=== PATIENT | male | born 1975 | race Caucasian/White ===

== ENCOUNTER 2019-06-26 15:15 | Outpatient (RCR) | payer OTHER, SELFPAY ==
[2019-06-12 14:25] VITALS: BP 159/92; PULSE 64; RESP 16; TEMP 36.9; BMI 52.2
[2019-06-16 15:05] VITALS: BP 136/78; PULSE 59; RESP 18; TEMP 36.4; BMI 52.2
--- NOTE | 2019-06-17 10:25 | PCM.WC.HP ---
(1) Venous stasis ulcer of left lower leg with edema of left lower leg Status: Acute Current Visit: Yes Code(s): I83.029 - Varicose veins of left lower extremity with ulcer of unspecified site; I83.892 - Varicose veins of left lower extremity with other complications; L97.929 - Non-pressure chronic ulcer of unspecified part of left lower leg with unspecified severity; R60.9 - Edema, unspecified (2) PVD (peripheral vascular disease) Status: Acute Current Visit: Yes Code(s): I73.9 - Peripheral vascular disease, unspecified (3) Morbid obesity Status: Acute Current Visit: Yes Code(s): E66.01 - Morbid (severe) obesity due to excess calories (4) Tobacco abuse Status: Acute Current Visit: Yes Code(s): Z72.0 - Tobacco use (5) Hypertension Status: Chronic Current Visit: Yes Code(s): I10 - Essential (primary) hypertension (6) Hyperlipidemia Status: Acute Current Visit: Yes Code(s): E78.5 - Hyperlipidemia, unspecified History of Present Illness Date of Service: 06/12/19 Chief Complaint: Nonhealing ulcer left lower extremity History of Wound: This is a 44-year-old white male who presents to the wound healing center today with complaint of a nonhealing ulcer to the left lower extremity x2 months. He has a past medical history as listed above significant for PVD. He does state that he has been seen in the past at the wound healing center for wounds and that he has been told that he has had venous insufficiency. He does note that he has a 1 pack/day smoker and has a history of hypertension hyperlipidemia. He states that the site initially started as a blister that opened up and that he has been covering the site with Telfa and Jimbo wraps and gauze. He notes a large amount of serosanguineous drainage. He states that he thinks the size is gradually improving. Denies any systemic or localized signs of infection at this time. All other systems reviewed and negative with exception of those listed above. Past Medical History Past Medical History: Chronic Problems Hypertension (Chronic) Surgical History: no surgical history Allergies/Adverse Reactions: Allergies meperidine [From Demerol] Allergy (Verified 06/12/19 14:44) Unknown Home Medications: Ambulatory Orders Medication Instructions Recorded Atorvastatin Calcium 20 mg PO DAILY 06/12/19 Metoprolol Tartrate 50 mg PO DAILY 06/12/19 Nabumetone 750 mg PO DAILY 06/12/19 Spironolactone 25 mg PO DAILY 06/12/19 Review of Systems Constitutional: Denies: Chills, Fever, Weight Change Eyes: Denies: Pain, Vision Change HEENT: Denies: Difficulty Hearing, Difficulty Swallowing, Sinus Congestion Cardiovascular: Reports: Edema. Denies: Chest Pain, Palpitations Respiratory: Denies: Cough, Shortness of Breath Gastrointestinal: Denies: Diarrhea, Nausea, Vomiting Genitourinary: Denies: Dysuria, Hematuria Skin: Reports: Wounds - See HPI Endocrine: Denies: Heat/ Cold Intolerance, Polydipsia, Polyuria Hematologic/ Lymphatic: Denies: Easy Bruising, Easy Bleeding - Physical Exam Vital Signs Temp Pulse Resp BP 97.5 F L 59 L 18 136/78 H 06/16/19 15:05 06/16/19 15:05 06/16/19 15:05 06/16/19 15:05 General: Alert, Oriented x3, Cooperative, No apparent distress HEENT: Atraumatic, PERRLA Oral: Moist Mucosa Neck: Supple Lungs: Clear to auscultation, Normal air movement, No rhonchi, No wheeze, No rales Cardiovascular: Regular rate, Regular Rhythm Abdomen: Soft, Non Tender, Obese Extremities: No clubbing, No cyanosis, Edema - +1 pitting bilateral lower extremity edema, Peripheral Pulses Normal Skin: Ulcer/ Wound - Circumferential ulceration to left lower extremity with large amount of adherent slough and devitalized tissue, no warmth, erythema, or streaking noted at this time Wound Measurements and Assessment WC - Nurse 1 - General Ulcer Measurement Start: 06/12/19 14:05 Freq: Status: Active Protocol: Activity Type Activity Date Activity User E-Sign Co-Sign Detail Recorded Client Recorded Date Recorded By Document 06/16/19 15:05 [id number] 06/16/19 15:21 DL 06/16/19 15:05 Wound Center Nurse 1 [Ulcer Assessment] #1- LLE CIRCUMFERENTIAL -Texture (Leena-wound Skin Appearance) No Abnormality -Moisture (Leena-wound Skin Appearance No Abnormality ) -Color (Leena-wound Skin Appearance) No Abnormality -Temperature (Leena-wound Skin No Abnormality Appearance) (Pt Warm) -Tenderness on Palpation (Leena-wound No Skin Appearance) -Ulcer Cleansing Wound Cleanser -Foul Odor after Cleansing No Neurological: Neuro grossly intact Psych/Mental Status: Normal Affect, Appropriate, Alert and oriented to time, place, person, mood and affect Debridement Note Post-Debridement Measurements/Treatment WC - Nurse 2 - General Ulcer CM Notes Start: 06/12/19 14:05 Freq: Status: Active Protocol: Activity Type Activity Date Activity User E-Sign Co-Sign Detail Recorded Client Recorded Date Recorded By Document 06/12/19 15:07 MW [id number] 06/12/19 15:16 MW 06/12/19 15:07 Wound Center Nurse 2 #1- LLE CIRCUMFERENTIAL -Time 15:09 -Correct Patient Yes -Correct Side, Site, Position Yes -Correct Procedure Yes -Procedure Performed Yes -Type of Procedure Debridement -Clinical Debridement Subcutaneous -Post Debridement Size (cm) - Length 16.4 -Post Debridement Size (cm) - Width 35.9 -Post Debridement Size (cm) - Depth 0.1 -Total Square Cm 588.76 -Wound/Ulcer Outcome Not Healed -Ulcer Cleansing Rinsed/ Irrigated with Saline -Foul Odor after Cleansing No -Bioengineered Tissue No -Bleeding Controlled with Pressure -Offloading No -Treatment Response Procedure Tolerated Well Pain Scale: 0-10 Numeric Is Patient Pain Free? Yes Wound debrided: Circumferential left venous leg ulcer Laterality: Left Type of Debridement: Excisional debridement Anesthesia Used: 4% Lidocaine Solution, 5% Lidocaine Gel Depth: in the subcutaneous layer Percentage of wound debrided: 100 Instrument Used: 7mm curette Tissue Removed: Slough and devitalized tissue Severity: Fat Layer Exposed Amount of bleeding with debridement: Mild Bleeding Controlled with: Pressure Patient tolerated procedure well Assessment/Plan Active Problems Venous stasis ulcer of left lower leg with edema of left lower leg (Acute) PVD (peripheral vascular disease) (Acute) Morbid obesity (Acute) Tobacco abuse (Acute) Hypertension (Chronic) Hyperlipidemia (Acute) Assessment: See above diagnoses Plan: The patient was seen and examined at the wound center today and was updated on the plan of care. A subcutaneous debridement was performed today. The patient tolerated the procedure well. The patients wound care will consist of:Application of Aquacel silver over ulcerations and Unna boot, change in 4 days. Wound cultures And blood work out at this time as site appears granular without any obvious signs of infection at this time. Will request recent primary care blood work.. Vascular studies ordered. Patient educated on the importance of diet on wound healing and instructed to increase protein and vitamin C intake. Patient verbalized understanding. Given the delayed wound healing In fact that it is failed standard wound care over the past 2 months, will apply for the use of a skin substitute. Patient will follow up at wound healing center in one week or sooner if needed. This note was generated with [employer] dictation software. It may contain incorrect words, spelling, and punctuation that were not noted in checking the note before signing. Code Visit Office Visits / Consults: [id number] OV L4 New [id number]: [id number] Sabine subq tissue 20 sq cm/< Add On Codes: 14224 Sabine subq tissue add-on
[2019-06-19 14:59] VITALS: BP 143/79; PULSE 64; RESP 18; TEMP 36.7; BMI 52.2
--- NOTE | 2019-06-19 21:19 | PCM.WC.PN ---
(1) Venous stasis ulcer of left lower leg with edema of left lower leg Status: Acute Code(s): I83.029 - Varicose veins of left lower extremity with ulcer of unspecified site; I83.892 - Varicose veins of left lower extremity with other complications; L97.929 - Non-pressure chronic ulcer of unspecified part of left lower leg with unspecified severity; R60.9 - Edema, unspecified (2) PVD (peripheral vascular disease) Status: Acute Code(s): I73.9 - Peripheral vascular disease, unspecified (3) Morbid obesity Status: Acute Code(s): E66.01 - Morbid (severe) obesity due to excess calories (4) Tobacco abuse Status: Acute Code(s): Z72.0 - Tobacco use (5) Hypertension Status: Chronic Code(s): I10 - Essential (primary) hypertension (6) Hyperlipidemia Status: Acute Code(s): E78.5 - Hyperlipidemia, unspecified Type of Wound Date of Service: 06/19/19 Chief Complaint: Nonhealing ulcer left lower extremity History of Wound: This is a 44-year-old white male who presents to the wound healing center today with complaint of a nonhealing ulcer to the left lower extremity x2 months. He has a past medical history as listed above significant for PVD. He does state that he has been seen in the past at the wound healing center for wounds and that he has been told that he has had venous insufficiency. He does note that he has a 1 pack/day smoker and has a history of hypertension hyperlipidemia. He states that the site initially started as a blister that opened up and that he has been covering the site with Telfa and Jimbo wraps and gauze. He notes a large amount of serosanguineous drainage. He states that he thinks the size is gradually improving. Denies any systemic or localized signs of infection at this time. All other systems reviewed and negative with exception of those listed above. Progress of Wound: Ulcerations to left lower extremity has improved significantly, no signs of infection at this time. No new concerns. - Physical Exam Vital Signs Temp Pulse Resp BP 98.0 F 64 18 143/79 H 06/19/19 14:59 06/19/19 14:59 06/19/19 14:59 06/19/19 14:59 General: Alert, Oriented x3, Cooperative, No apparent distress HEENT: Atraumatic, PERRLA Oral: Moist Mucosa Lungs: Clear to auscultation, Normal air movement Cardiovascular: Regular rate Abdomen: Soft, Non Tender, Obese Extremities: No clubbing, No cyanosis, Edema - Generalized bilateral lower extremity edema, Peripheral Pulses Normal Skin: Ulcer/ Wound - Ulceration to left lower extremity with adherent slough, no signs of infection at this time Neurological: Neuro grossly intact Psych/Mental Status: Normal Affect, Appropriate, Alert and oriented to time, place, person, mood and affect Debridement Note Post-Debridement Measurements/Treatment WC - Nurse 2 - General Ulcer CM Notes Start: 06/12/19 14:05 Freq: Status: Active Protocol: Activity Type Activity Date Activity User E-Sign Co-Sign Detail Recorded Client Recorded Date Recorded By Document 06/12/19 15:07 MW [id number] 06/12/19 15:16 MW Document 06/19/19 15:29 MW [id number] 06/19/19 15:31 MW 06/12/19 06/19/19 15:07 15:29 Wound Center Nurse 2 #1- LLE CIRCUMFERENTIAL -Time 15:09 15:30 -Correct Patient Yes Yes -Correct Side, Site, Position Yes Yes -Correct Procedure Yes Yes -Procedure Performed Yes Yes -Type of Procedure Debridement Debridement -Clinical Debridement Subcutaneous Subcutaneous -Post Debridement Size (cm) - Length 16.4 1.0 -Post Debridement Size (cm) - Width 35.9 1.0 -Post Debridement Size (cm) - Depth 0.1 0.1 -Total Square Cm 588.76 1.00 -Wound/Ulcer Outcome Not Healed Not Healed -Ulcer Cleansing Rinsed/ Rinsed/ Irrigated with Irrigated with Saline Saline -Foul Odor after Cleansing No No -Bioengineered Tissue No No -Bleeding Controlled with Pressure Pressure -Offloading No No -Treatment Response Procedure Procedure Tolerated Well Tolerated Well Pain Scale: 0-10 Numeric Is Patient Pain Free? Yes Yes Wound debrided: Left lower extremity ulceration Laterality: Left Type of Debridement: Excisional debridement Anesthesia Used: 5% Lidocaine Gel Depth: in the subcutaneous layer Percentage of wound debrided: 100 Instrument Used: 7mm curette Tissue Removed: Slough and devitalized tissue Severity: Fat Layer Exposed Amount of bleeding with debridement: Mild Bleeding Controlled with: Pressure Patient tolerated procedure well Assessment/Plan Assessment: See above diagnoses Plan: The patient was seen and examined at the wound center today and was updated on the plan of care. A subcutaneous debridement was performed today. The patient tolerated the procedure well. The patients wound care will consist of:Application of Aquacel silver over ulcerations and Unna boot, change in 1 week. Wound cultures And blood work held at this time as site appears granular without any obvious signs of infection at this time. Will request recent primary care blood work.. Vascular studies Pending. Given the patient's history of PVD will order [place] wraps for compression.. Patient educated on the importance of diet on wound healing and instructed to increase protein and vitamin C intake. Patient verbalized understanding. Given the delayed wound healing In fact that it is failed standard wound care over the past 2 months, will apply for the use of a skin substitute. Patient will follow up at wound healing center in one week or sooner if needed. This note was generated with [employer] dictation software. It may contain incorrect words, spelling, and punctuation that were not noted in checking the note before signing.
== END 2019-07-08 23:59 ==
LOC: WC 15:15
PROVIDERS: Visit Provider Nurse Practitioner Family
DX: I83.028 Varicose veins of left lower extremity with ulcer other part of lower leg (principal); L97.822 Non-pressure chronic ulcer of other part of left lower leg with fat layer exposed; E66.01 Morbid (severe) obesity due to excess calories; I10 Essential (primary) hypertension; E78.5 Hyperlipidemia, unspecified; Z72.0 Tobacco use
CPT/HCPCS: 11042; 11045; 29580; 99213; G0463